=== PATIENT | male | born 1955 | race Caucasian/White ===

== ENCOUNTER 2021-11-18 12:36 | Inpatient (IN) | payer MEDICARE ==
[~2021-11-18] VITALS: Ht 182.9 cm; Wt 156.5 kg
[~2021-11-18 12:36] MED LIST: COLCHICINE 0.60.6 MG PO; COLCRYS0.6 MG PO; CYMBALTA20 MG PO; DICLOFENAC SOD100 GM TOP; DIOVAN160 MG PO; GLUCOPHAGE 500500 MG PO; HYDROCODON-ACE1 EAC6 PO; PROTONIX40 MG PO; ZANTAC300 MG PO
[2021-11-18 13:02] LABS: HEMOGLOBIN 14.3 gm/dl (14.0-17.5); RED BLOOD COUNT 4.67 M/UL (4.20-5.50); WHITE BLOOD COUNT 14.6 K/UL (4.5-11.0)
[2021-11-19 05:46] LABS: HEMOGLOBIN 13.1 gm/dl (14.0-17.5); RED BLOOD COUNT 4.34 M/UL (4.20-5.50)
[2021-11-19 05:48] LABS: WHITE BLOOD COUNT 10.9 K/UL (4.5-11.0)
[2021-11-19 06:25] LABS: BUN/CREATININE RATIO 38 (0-10)
[2021-11-19] MEDS ORDERED: LEVOCETIRIZINE D5 MG PO (09:03)
[2021-11-19] MEDS ORDERED: LYRICA150 MG PO ×2 (09:03→10:32)
[2021-11-19] MEDS ORDERED: ALLOPURINOL300 MG PO (09:04)
== END 2021-11-19 12:15 | disposition home or self-care (01) | DRG 92 ==
LOC: ER1 12:36 → CDU 17:16 → MED SURG 4 18:24
PROVIDERS: Family Medicine; ADMIT Internal Medicine
DX: G25.3 Myoclonus (principal); N17.9 Acute kidney failure, unspecified; Z68.42 Body mass index [BMI] 45.0-49.9, adult; T42.6X5A Adverse effect of other antiepileptic and sedative-hypnotic drugs, initial encounter; M25.562 Pain in left knee; E11.9 Type 2 diabetes mellitus without complications; K21.9 Gastro-esophageal reflux disease without esophagitis; M10.9 Gout, unspecified; G89.4 Chronic pain syndrome; I10 Essential (primary) hypertension; E66.9 Obesity, unspecified; Z76.5 Malingerer [conscious simulation]; Z82.49 Family history of ischemic heart disease and other diseases of the circulatory system; Z83.3 Family history of diabetes mellitus
CPT/HCPCS: 70450; 71045; 73564; 80053; 81001; 82140; 82550; 82553; 82962; 83036; 83540; 83550; 83735; 84484; 85025; 85027; 87040; 87086; 93005; 96361; 96374; 96375; 99285; C9113; J0515; J0696; J1650; J2250